=== PATIENT | female | born 1995 | race Caucasian/White ===

== ENCOUNTER 2025-03-12 22:42 | Emergency (ER) | payer MEDICARE, SELFPAY ==
[2025-03-12 22:51] VITALS: BP 134/84; PULSE 90; RESP 20; TEMP 36.6; O2SAT 99; BMI 29.0
--- NOTE | 2025-03-12 22:59 | XR_ITS ---
PROCEDURE INFORMATION: Exam: XR Left Shoulder Exam date and time: 03/12/2025 11:04 PM Age: 29 years old Clinical indication: Pain; Shoulder; Left; Additional info: Pain since Wednesday after moving [place] TECHNIQUE: Imaging protocol: Radiologic exam of the left shoulder. Views: 2 or more views. Total images: 3 COMPARISON: No relevant prior studies available. FINDINGS: Bones/joints: No acute fracture, joint dislocation, or AC joint separation. Unremarkable joint spaces and subacromial distance. No concerning bone lesions. Soft tissues: Unremarkable soft tissues. IMPRESSION: Negative left shoulder
--- NOTE | 2025-03-12 23:07 | HMH.EDGENADL ---
Discharge Plan Disposition Patient Disposition: Home, Self-Care Condition: Good Prescriptions Prescriptions: New methocarbamol 500 mg tablet 500 mg PO Q6H PRN (Reason: muscle spasm) Qty: 30 0RF Referrals Follow up/Referrals: Provider,Referral, [Primary Care Provider, Medical] - See instructions Activity Restrictions/Add. Instructions Additional Instructions/Restrictions: You were evaluated in the ER and are believed to be appropriate for discharge at this time. Continue taking Tylenol at home if needed for pain. Do not exceed the recommended dose on the bottle. Drink water and eat a small snack each time you take this medication to avoid side effects. Take the prescribed methocarbamol as directed if needed for muscle spasm. This medication may make you sleepy, do not drive or operate machinery after taking it. Wear the sling if needed for comfort but take your arm out of the sling multiple times a day and perform gentle range of motion exercises as you were shown in the ER to avoid frozen shoulder. As soon as you are comfortable did not wear the sling, you should stop wearing it. You can apply ice/heat for up to 20 minutes at a time to the area. Do not apply these directly to the skin so that you do not injure your skin. Please make an appointment with your primary care doctor for reevaluation in 2 to 3 days. Return to the ER with any new, worsening, or otherwise concerning symptoms. Clinical Impressions Clinical Impression: Muscle spasm, Left shoulder pain Instructions Patient Instructions: DI for Shoulder Pain Print Language Print Language: Turkmen Discharge ED Provider: Pallavi Moreno Adult HPI General Chief complaint: PAIN Stated complaint: L shoulder keeps popping and sending pain down Time Seen by Provider: 03/12/25 22:59 Mode of Arrival: Ambulatory Source of Information: Patient Description of Symptoms (Recalled from ER Triage Doc. by RN): patient c/o left shoulder pain that started wednesday. patient states she was helping her mom move [place] on wednesday and now feels like her shoulder is popping when she moves. History of Present Illness HPI narrative: 29-year-old female presents to the ER complaining of left shoulder pain that started 2 days ago. Patient reports she was helping her mom move [place] 3 days ago and when she woke up Wednesday morning had aching and pain behind the left shoulder. She demonstrates to the trapezius and rhomboid muscle area. She states she has occasional popping, she does have full range of motion of the shoulder. She states occasionally pain will shoot down the back of the arm. She has no numbness, tingling, or weakness. No headache or dizziness, no fevers or chills, no chest pain or difficulty breathing, no complaints of abdominal pain, nausea, vomiting, diarrhea, or constipation. Denies falling on the shoulder or having an acute traumatic injury. No other complaints or concerns. Related Data Previous Rx's ?Medication ?Instructions ?Recorded methocarbamol 500 mg tablet 500 mg PO Q6H PRN muscle spasm #30 03/12/25 tabs Allergies Allergy/AdvReac Type Severity Reaction Status Date / Time ibuprofen Allergy rash Verified 03/12/25 23:05 [facility] Disclaimer: The information contained in this section may have been updated after the patient was seen, as this information can be updated by other users. Social History Smoking Status: Never smoker alcohol intake: never current occupational status: other Travel in the last 8 weeks?: None ROS Obtained: Yes Systems reviewed as appropriate & no additional complaints except as documented Per HPI Physical Exam General General appearance: alert and in no apparent distress Head Head exam: atraumatic and normocephalic Eye Eye exam: Present PERRL and EOMI ENT ENT exam: Present mucous membranes moist Neck Neck exam: Present normal inspection and full ROM Chest Chest inspection: Present symmetric chest wall rise Respiratory Respiratory exam: Present normal lung sounds bilaterally; Absent respiratory distress, wheezes or stridor Cardiovascular Cardiovascular exam: Present regular rate and normal rhythm Extremities Exam Extremities exam: Present full ROM (Full range of motion of the left upper extremity in all planes of motion with full strength. Rotator cuff testing negative.), normal capillary refill and other (Neurovascularly intact throughout.); Absent edema or joint swelling Back Exam Back exam: Present normal inspection, full ROM and tenderness; Absent vertebral tenderness Back 1 view image:  1. Tenderness with spasm of the muscles in this area including the trapezius and upper rhomboid, no evidence of acute traumatic injury. Neurological Exam Neurological exam: Present alert and oriented X3; Absent motor sensory deficit Psychiatric Psychiatric exam: Present normal affect and normal mood Skin Skin exam: Present warm and dry Medical Decision Making Medical Records Medical records reviewed: Yes I reviewed the patient's medical records. Screening: Per USPSTF and CDC recommendations, given the prevalence of disease in our region, it is our hospital?s policy to screen for HIV and viral Hepatitis for all patients aged 18 and over and those with ongoing risk factors. Jose Inquiry Pt receiving controlled substance: No Vital Signs: 03/12/25 22:51 Temperature 98 F Temperature Source Oral Pulse Rate [Left] 90 Respiratory Rate 20 Blood Pressure [Right Arm] 134/84 Blood Pressure Mean [Right Arm] 100 Blood Pressure Source [Right Arm] Automatic Cuff Blood Pressure Position [Right Arm] Sitting 02 Sat by Pulse Oximetry 99 Oxygen Delivery Method Room Air Orders (Tests/Meds): ED MEDICATIONS Discontinued Medications Generic Name Dose Route Start Last Admin Trade Name Freq PRN Reason Stop Dose Admin Methocarbamol 500 mg 03/12/25 23:03 03/12/25 23:09 Methocarbamol 500mg Tablet PO 03/12/25 23:04 500 mg ONCE ONE Administration ORDERS Category Date Time Status Shoulder XR left minimum 2 views [XR shoulder LT min 2V Exams 03/12/25 22:59 Taken ] Stat Medical Decision Narrative: In summary, this 29-year-old female presents to the emergency department today with left posterior shoulder pain. On initial evaluation patient is hemodynamically stable, afebrile, GCS 15, neurovascularly intact throughout, full range of motion of the left shoulder, but patient has tenderness over the left trapezius and left rhomboid muscles with evidence of spasm. No swelling or deformity. No external evidence of acute traumatic injury.. Differential diagnosis includes but is not limited to overuse injury, muscle spasm, I considered rotator cuff injury but do not appreciate any deficits or abnormalities on rotator cuff physical exam testing. No AC tenderness. I considered the possibility of osseous injury, bone spur though I suspect these to be less likely since patient has not had an acute traumatic injury and pain onset after abnormal activity and use of the upper extremities. Based on these concerns, I ordered x-ray left shoulder and conservative management pain control. Patient reports itching with ibuprofen and hives to the injection that supposed to be like ibuprofen believed to be Toradol. Methocarbamol administered. She took Tylenol at home. X-ray personally interpreted demonstrates no acute osseous injury, see radiology read for final interpretation. Patient was placed in a sling for comfort and instructed on frequent range of motion exercises to avoid frozen shoulder. Methocarbamol prescribed. Patient was given instructions on other conservative management such as ice and heat. Patient was given instructions on symptomatic monitoring and management, follow up instructions, and return precautions for the emergency department. Patient indicated understanding and was discharged in stable condition. Critical Care Critical Care Time Critical Care Time: No
[2025-03-12] MEDS: METHOCARBAMOL 500MG TABLET 500 MG PO (23:09)
[2025-03-12 23:29] VITALS: BP 130/79; PULSE 84; RESP 20; TEMP 36.6; O2SAT 100
== END 2025-03-12 23:31 | disposition home or self-care (01) ==
PROVIDERS: Emergency Provider Student in an Organized Health Care Education/Training Program
DX: M25.512 Pain in left shoulder (principal); M62.838 Other muscle spasm
CPT/HCPCS: 73030; 96372; 99282; 99283